=== PATIENT | male | born 1960 | race Caucasian/White ===

== ENCOUNTER 2024-01-30 05:16 | Emergency (ER) | payer MEDICAID ==
[~2024-01-30] VITALS: Ht 167.6 cm; Wt 73.0 kg
[2024-01-30 05:19] VITALS: O2SAT 99
[2024-01-30] MEDS: DEXTROSE 50% WATER 50ML SYRINGE IV ONE (06:03)
[2024-01-30 06:19] LABS: CHLORIDE 107 mEq/L (98-107); POTASSIUM 4.1 mEq/L (3.5-5.1); SODIUM 141 mEq/L (136-145)
[2024-01-30 06:20] LABS: BASOPHILS % 0.4 % (0.0-2.0); CARBON DIOXIDE 27 mEq/L (21-32); EOSINOPHILS % 0.2 % (0.0-5.0); HEMATOCRIT. 49.4 % (42.0-52.0); HEMOGLOBIN. 16.9 g/dL (14.0-18.0); LYMPHOCYTES % 8.2 % (20.0-50.0); MEAN CORPUSCULAR HEMOGLOBIN 29.7 pg (28.0-32.0); MEAN CORPUSCULAR HGB CONC 34.1 g/dL (31.0-37.0); MEAN CORPUSCULAR VOLUME 87.1 fL (80.0-94.0); MEAN PLATELET VOLUME 7.3 fl (7.4-10.4); NEUTROPHILS % 86.2 % (40.0-76.0); PLATELET 376 x1000/uL (130-400); RED BLOOD CELL COUNT 5.68 mill/uL (4.7-6.1); RED CELL DISTRIBUTION WIDTH 14.9 % (11.6-14.6)
[2024-01-30 06:21] LABS: CALCIUM 10.1 mg/dL (8.7-10.4)
[2024-01-30 06:25] LABS: CREATININE 0.8 mg/dL (0.6-1.3)
[2024-01-30 06:26] LABS: TROPONIN I HIGH SENSITIVITY 35 ng/L (3.0-53); UREA NITROGEN BLOOD 18 mg/dL (9-23)
[2024-01-30 06:27] LABS: ALANINE AMINOTRANSFERASE 9 IU/L (10-49); ALBUMIN 4.8 g/dL (3.2-4.8); ASPARTATE AMINOTRANSFERASE 20 IU/L (<34)
[2024-01-30 06:28] LABS: BILIRUBIN TOTAL 0.4 mg/dL (0.1-1.0); PROTEIN TOTAL 8.7 g/dL (6.0-8.3)
[2024-01-30 06:29] LABS: BILIRUBIN DIRECT < 0.1 mg/dL (<=3.0)
[2024-01-30 06:32] LABS: GLUCOSE 27 mg/dL (70-105)
[2024-01-30 06:37] LABS: INR 0.9; PROTHROMBIN TIME 10.1 sec (9.6-11.0)
[2024-01-30 08:22] LABS: TROPONIN I HIGH SENSITIVITY 31 ng/L (3.0-53)
[2024-01-30 11:52] VITALS: BP 143/88; PULSE 104; RESP 15; TEMP 36.44736; O2SAT 99
== END 2024-01-30 14:47 | disposition home or self-care (01) ==
LOC: ER 05:16
DX: E11.649 Type 2 diabetes mellitus with hypoglycemia without coma (principal); I10 Essential (primary) hypertension; R51.9 Headache, unspecified
CPT/HCPCS: 36415; 70486; 71045; 72170; 80048; 80076; 82962; 84484; 85025; 86850; 86900; 93005; 96374; 99285